=== PATIENT | male | born 1950 | race African-American/Black ===

== ENCOUNTER 2017-11-12 14:53 | Outpatient (CLI) | payer MEDICARE, MEDICAID | END 2017-11-12 14:54 | disposition home or self-care (01) | LOC: BICRAD 14:53 | PROVIDERS: ATTEND Family Medicine | DX: M47.812 Spondylosis without myelopathy or radiculopathy, cervical region (principal); M19.042 Primary osteoarthritis, left hand; M19.041 Primary osteoarthritis, right hand; M17.0 Bilateral primary osteoarthritis of knee; M47.816 Spondylosis without myelopathy or radiculopathy, lumbar region; M19.031 Primary osteoarthritis, right wrist | CPT/HCPCS: 72040; 72100 ==

== ENCOUNTER 2018-10-10 09:39 | Outpatient (CLI) | payer MEDICARE, MEDICAID ==
--- NOTE | 2018-10-10 10:33 | RAD ---
THREE VIEWS RIGHT SHOULDER: Date: 10-10-18 History: Shoulder pain. FINDINGS: There is right glenohumeral osteoarthropathy with narrowing of the glenohumeral joint as well as prob ably osteophyte formation present. There is mild right acromioclavicular joint osteoarthritis. No fra cture, dislocation, or other osseous abnormalities seen. IMPRESSION: 1. Right glenohumeral osteoarthropathy with prominent osteophytes present. 2. Mild right acromioclavicular joint osteoarthritis. 3. No acute osseous abnormality. POS: [facility]
== END 2018-10-10 09:40 | disposition home or self-care (01) ==
LOC: BICRAD 09:39
PROVIDERS: ATTEND Family Medicine
DX: M25.511 Pain in right shoulder (principal); M19.011 Primary osteoarthritis, right shoulder; M25.711 Osteophyte, right shoulder

== ENCOUNTER 2018-11-17 07:26 | Emergency (ER) | payer MEDICARE, MEDICAID | END 2018-11-17 07:52 | disposition home or self-care (01) | LOC: ERS 07:26 | DX: M19.90 Unspecified osteoarthritis, unspecified site (principal); I10 Essential (primary) hypertension | CPT/HCPCS: 99283 ==

== ENCOUNTER 2019-01-14 13:54 | Outpatient (CLI) | payer MEDICARE, OTHER ==
--- NOTE | 2019-01-14 15:00 | MRI ---
EXAM: Lumbar spine MRI without contrast. HISTORY: Lumbar stenosis with neurogenic claudication chronic low back pain COMPARISON: None FINDINGS: Multiplanar, multisequence MRI examination of the lumbar spine is performed. The conus medullaris region appears unremarkable. There is some focal peridiscal altered signal at L3-L4 and L4-L5 evidence for mixed including type I endplate changes. 1.6 cm left renal T1 hypointense, T2 hyperintense nodular focus evidence for a cyst. Generalized disc desiccation changes and ligament and facet hypertrophic changes. T12-L1 disc level: Unremarkable. L1-L2 disc level: Mild disc bulging with slight foraminal narrowing. L2-L3 disc level: Disc bulging with mild central canal and lateral recess and foraminal stenosis. L3-L4 disc level: Severe disc bulging with moderate to severe central canal and lateral recess stenos is and severe bilateral foraminal stenosis. L4-L5 disc level: Diffuse disc osteophytosis with mild central canal and lateral recess stenosis and severe bilateral foraminal stenosis. L5-S1 disc level: Unremarkable. IMPRESSION: Multilevel variable severity canal, recesses, foraminal stenosis as above most marked at L3-L4 and L4 -L5.
== END 2019-01-14 13:55 | disposition home or self-care (01) ==
LOC: BICMRI 13:54
PROVIDERS: ATTEND Anesthesiology Pain Medicine
DX: M48.062 Spinal stenosis, lumbar region with neurogenic claudication (principal)
CPT/HCPCS: 72148

== ENCOUNTER 2019-07-17 08:15 | Outpatient (CLI) | payer MEDICARE, MEDICAID ==
--- NOTE | 2019-07-17 09:43 | RAD ---
PA AND LATERAL VIEWS CHEST: HISTORY: Acute bronchitis, cough, shortness of breath. FINDINGS/imp The heart size is normal. The aorta is tortuous. Minimal infiltrate is seen in the left lower lung. No lobar consolidation, pneumothoraces, or pleural effusions are identified. POS: OFF
== END 2019-07-17 08:16 | disposition home or self-care (01) ==
LOC: BICRAD 08:15
PROVIDERS: ATTEND Family Medicine
DX: J20.9 Acute bronchitis, unspecified (principal); R91.8 Other nonspecific abnormal finding of lung field
CPT/HCPCS: 71046

== ENCOUNTER 2019-08-20 11:37 | Outpatient (CLI) | payer MEDICARE, MEDICAID ==
--- NOTE | 2019-08-20 11:58 | RAD ---
XR Chest Pa Lat STANDARD HISTORY: Pneumonia left lower lobe due to infectious organisms COMPARISON: 07/17/2019 FINDINGS: The heart size is normal. The lungs are well expanded without focal areas of consolidation, pneumothorax or pleural effusions. There is mild scarring at the left lung base. IMPRESSION: No radiographic evidence of acute cardiopulmonary process.
== END 2019-08-20 11:38 | disposition home or self-care (01) ==
LOC: BICRAD 11:37
PROVIDERS: ATTEND Family Medicine
DX: J18.9 Pneumonia, unspecified organism (principal)
CPT/HCPCS: 71046

== ENCOUNTER 2020-10-04 11:01 | Outpatient (CLI) | payer MEDICARE, OTHER ==
--- NOTE | 2020-10-04 11:19 | RAD ---
Left wrist 3 views: 10/04/2020 COMPARISON: None HISTORY: Left wrist pain for 3 months, injury FINDINGS: There is prominent degenerative change at the first carpometacarpal joint. There is nonspec ific soft tissue swelling medial to the ulnar styloid. Mild radiocarpal joint space narrowing. There is prominent joint space narrowing at the articulation of the lunate and capitate. No displaced fracture or dislocation. IMPRESSION: Chronic findings as above. No acute fracture or dislocation. Nonspecific medial soft tissue swelling. If symptoms persist and the study was performed in the setting of acute trauma, follow-up in 7-10 day s with dedicated scaphoid views advised.
== END 2020-10-04 11:02 | disposition home or self-care (01) ==
LOC: BICRAD 11:01
PROVIDERS: ATTEND Family Medicine
DX: M25.532 Pain in left wrist (principal); M79.89 Other specified soft tissue disorders; M18.12 Unilateral primary osteoarthritis of first carpometacarpal joint, left hand